=== PATIENT | female | born 1960 ===

== ENCOUNTER → 2025-10-24 10:19 | Outpatient (CLI) | payer OTHER, MEDICARE, SELFPAY ==
[2025-10-24 12:34] LABS: Appearance Urine UA CLEAR; Bilirubin Urine UA NEGATIVE (NEGATIVE); Color Urine UA YELLOW; Glucose Urine UA NEGATIVE (Negative); Ketones Urine UA NEGATIVE (NEGATIVE); Leukocyte Esterase Urine UA NEGATIVE (NEGATIVE); Nitrite Urine UA NEGATIVE (Negative); Occult Blood Urine UA NEGATIVE (Negative); Protein Urine UA NEGATIVE (Negative); Specific Gravity Urine UA 1.010 (1.000-1.035); Urobilinogen Urine UA 0.2 E.U./dL (0.2)
[2025-10-24 12:55] LABS: pH Urine UA 7.0 (4.5-8.0)
[2025-10-24 12:56] LABS: Culture Indicated Urine Cult Not Indicated
== END ==
PROVIDERS: Visit Provider Obstetrics & Gynecology Gynecology
DX: N81.2 Incomplete uterovaginal prolapse (principal)
CPT/HCPCS: 81001